=== PATIENT | male | born 1990 | race African-American/Black ===

== ENCOUNTER 2020-06-05 12:00 | Emergency (ER) | payer OTHER ==
[2020-06-05 12:18] VITALS: BP 113/66; PULSE 80; RESP 18; TEMP 97.8
[2020-06-05] MEDS ORDERED: ACET/COD 300 MG/30 MG STARTER PACK 6 TAB BTL PO STA (12:44)
--- NOTE | 2020-06-05 12:44 | ED ---
ENT HPI - General Chief complaint: Dental/Oral Stated complaint: dental infection Time Seen by Provider: 06/05/20 12:34 Source: patient, RN notes reviewed Mode of arrival: ambulatory Limitations: no limitations - History of Present Illness Initial comments: 29-year-old male presents emergency Department chief complaint abdominal pain. Patient's had on-and-off issues with this over the last year. Patient states she's on able to get removed as he does not have insurance. Patient had increased pain last few days. Denies patient having a fever states he's had chills at nighttime. No difficult to swallow no difficulty breathing. - Related Data Previous Rx's Medication Instructions Recorded Clindamycin HCl 300 mg PO Q6HR #40 cap 06/05/20 Ibuprofen [Motrin] 600 mg PO Q8HR PRN #20 tab 06/05/20 Allergies Allergy/AdvReac Type Severity Reaction Status Date / Time No Known Allergies Allergy Verified 06/05/20 12:18 Review of Systems ROS Statement: Those systems with pertinent positive or pertinent negative responses have been documented in the HPI. ROS Other: All systems not noted in ROS Statement are negative. Past Medical History Past Medical History: No Reported History History of Any Multi-Drug Resistant Organisms: None Reported Past Surgical History: No Surgical Hx Reported Past Psychological History: No Psychological Hx Reported Smoking Status: Current every day smoker Past Alcohol Use History: None Reported Past Drug Use History: None Reported General Exam Limitations: no limitations General appearance: alert, in no apparent distress Head exam: Present: atraumatic, normocephalic, normal inspection Eye exam: Present: normal appearance, PERRL, EOMI. Absent: scleral icterus, conjunctival injection, periorbital swelling ENT exam: Present: mucous membranes moist, TM's normal bilaterally, normal external ear exam. Absent: normal exam, normal oropharynx (Right upper dental fracture No drainable abscess, mild erythema) Neck exam: Present: normal inspection. Absent: tenderness, meningismus, lymphadenopathy Respiratory exam: Present: normal lung sounds bilaterally. Absent: respiratory distress, wheezes, rales, rhonchi, stridor Cardiovascular Exam: Present: regular rate, normal rhythm, normal heart sounds. Absent: systolic murmur, diastolic murmur, rubs, gallop, clicks Course Vital Signs 06/05/20 12:14 Temperature 97.8 F Pulse Rate 80 Respiratory 18 Rate Blood Pressure 113/66 O2 Sat by Pulse 100 Oximetry Medical Decision Making - Medical Decision Making Patient was started on antibiotics, patient was given a starter pack of pain medication. Patient will follow-up with dental clinic and return for any worsening change in symptoms. Disposition Clinical Impression: Fracture of tooth, Toothache Disposition: HOME SELF-CARE Condition: Stable Instructions (If sedation given, give patient instructions): Toothache (ED) Additional Instructions: Please follow up with the [facility]. [facility] [place] [address]. Phone number for new patients or [phone] for existing patients. Please return to the Emergency Department if symptoms worsen or any other concerns. Prescriptions: Clindamycin HCl 300 mg PO Q6HR #40 cap Ibuprofen [Motrin] 600 mg PO Q8HR PRN #20 tab PRN Reason: Pain Is patient prescribed a controlled substance at d/c from ED?: No Referrals: None,Stated [Primary Care Provider] - 1-2 days Time of Disposition: 12:44
== END 2020-06-05 12:57 | disposition home or self-care (01) ==
LOC: EC 12:00
DX: S02.5XXA Fracture of tooth (traumatic), initial encounter for closed fracture (principal); F17.200 Nicotine dependence, unspecified, uncomplicated; X58.XXXA Exposure to other specified factors, initial encounter
CPT/HCPCS: 99283

== ENCOUNTER 2021-01-01 14:08 | Emergency (ER) | payer BC, OTHER ==
[2021-01-01] MEDS ORDERED: ACET/COD 300 MG/30 MG STARTER PACK 6 TAB BTL PO STA (14:52)
--- NOTE | 2021-01-01 14:56 | ED ---
ENT HPI - General Chief complaint: Dental/Oral Stated complaint: Dental Pain Time Seen by Provider: 01/01/21 14:24 Source: patient Mode of arrival: ambulatory Limitations: no limitations - History of Present Illness Initial comments: 31-year-old female presents emergency Department with chief complaint of dental pain. Patient reports she has not seen a dentist in quite some time. States most of the pain is located in his bottom left side. Patient reports pain with mastication over the last 2 days. Denies any erythematous changes fevers chills or any facial swelling. Pain is alleviated at rest. Patient is sharp 02/06. - Related Data Previous Rx's Medication Instructions Recorded Clindamycin HCl 300 mg PO Q6HR #40 cap 06/05/20 Ibuprofen [Motrin] 600 mg PO Q8HR PRN #20 tab 06/05/20 Amoxicillin/Potassium Clav 1 tab PO Q12HR #20 tab 01/01/21 [Augmentin 875-125 Tablet] Allergies Allergy/AdvReac Type Severity Reaction Status Date / Time No Known Allergies Allergy Verified 01/01/21 14:21 Review of Systems ROS Statement: Those systems with pertinent positive or pertinent negative responses have been documented in the HPI. ROS Other: All systems not noted in ROS Statement are negative. Past Medical History Past Medical History: No Reported History History of Any Multi-Drug Resistant Organisms: None Reported Past Surgical History: No Surgical Hx Reported Past Psychological History: No Psychological Hx Reported Smoking Status: Vaper Past Alcohol Use History: None Reported Past Drug Use History: Marijuana General Exam Limitations: no limitations General appearance: alert, in no apparent distress Head exam: Present: atraumatic, normocephalic, normal inspection Eye exam: Present: normal appearance, PERRL, EOMI Pupils: Present: normal accommodation ENT exam: Present: normal exam, mucous membranes moist, TM's normal bilaterally, normal external ear exam. Absent: normal oropharynx (Poor dentition. No signs of periapical abscess. Mild gingival irritation. Tenderness at tooth #21.) Neck exam: Present: normal inspection, full ROM. Absent: tenderness, lymphadenopathy Respiratory exam: Present: normal lung sounds bilaterally. Absent: respiratory distress Cardiovascular Exam: Present: regular rate, normal rhythm, normal heart sounds. Absent: systolic murmur Extremities exam: Present: normal inspection, full ROM. Absent: tenderness Back exam: Present: normal inspection, full ROM. Absent: tenderness Neurological exam: Present: alert, oriented X3 Psychiatric exam: Present: normal affect, normal mood Skin exam: Present: warm, dry, intact, normal color Course Vital Signs 01/01/21 14:19 Temperature 98.1 F Pulse Rate 96 Respiratory 20 Rate Blood Pressure 98/65 O2 Sat by Pulse 98 Oximetry Medical Decision Making - Medical Decision Making 30-year-old male presents to emergency department with chief complaint of dental pain. Physical examination, no periorbital abscess or facial swelling. Patient will be given Tylenol 3 starter pack. Also given information regarding local [facility]. He will also be discharged with Augmentin. Case discussed with physician Disposition Clinical Impression: Toothache Disposition: HOME SELF-CARE Condition: Stable Instructions (If sedation given, give patient instructions): Toothache (ED) Additional Instructions: Please return to the Emergency Department if symptoms worsen or any other concerns. Prescriptions: Amoxicillin/Potassium Clav [Augmentin 875-125 Tablet] 1 tab PO Q12HR #20 tab Is patient prescribed a controlled substance at d/c from ED?: No Referrals: Natali Munoz MD [Primary Care Provider] - 1-2 days Time of Disposition: 14:56
[2021-01-01 15:07] VITALS: BP 100/66; PULSE 92; RESP 18; TEMP 98
== END 2021-01-01 15:06 | disposition home or self-care (01) ==
LOC: EC 14:08
DX: K08.89 Other specified disorders of teeth and supporting structures (principal); F12.90 Cannabis use, unspecified, uncomplicated; Z79.1 Long term (current) use of non-steroidal anti-inflammatories (NSAID)
CPT/HCPCS: 99282

== ENCOUNTER 2021-02-27 13:41 | Emergency (ER) | payer OTHER ==
[2021-02-27 13:46] VITALS: BP 120/75; RESP 18
[2021-02-27] MEDS ORDERED: KETOROLAC 15 MG/ML 1 ML VIAL IVP STA (13:59)
[2021-02-27] MEDS ORDERED: SODIUM CHLORIDE 0.9% 1,000 ML IV STA (13:59)
--- NOTE | 2021-02-27 14:58 | XR ---
EXAMINATION TYPE: XR thoracic spine 2V DATE OF EXAM: 02/27/2021 COMPARISON: None HISTORY: Right middle back pain TECHNIQUE: 3 view thoracic spine FINDINGS: Vertebral body heights are preserved. Disc heights are preserved. A mild scoliosis with indra e bending towards the left is evident. This could be related to patient positioning or muscle spasm. There are 12 thoracic type vertebral bodies. Pedicles are intact. IMPRESSION: 1. Mild scoliosis and side bending towards the left which can be related to patient positioning or m uscle spasm. 2. No acute osseous abnormality.
--- NOTE | 2021-02-27 15:22 | ED ---
Back Pain HPI - General Chief Complaint: Back Pain/Injury Stated Complaint: Back Injury Time Seen by Provider: 02/27/21 13:50 Source: patient, RN notes reviewed Limitations: no limitations - History of Present Illness Initial Comments: Patient is a 30-year-old male that presents to the emergency department complaining of right middle back pain. He notes he was at work when a small piece of wood pushing a lot of follow-up to remove and hit him in the back. He notes that his back is very tight and tender at this time. He notes he is having difficulty walking on the street. He wanted to come emergency room to get evaluated for any possible issues. He was otherwise a well-appearing 30-year-old male in no apparent distress. He denied any chest pain short of breath headache nausea vomiting diarrhea constipation fever fatigue chills. - Related Data Previous Rx's Medication Instructions Recorded Clindamycin HCl 300 mg PO Q6HR #40 cap 06/05/20 Ibuprofen [Motrin] 600 mg PO Q8HR PRN #20 tab 06/05/20 Amoxicillin/Potassium Clav 1 tab PO Q12HR #20 tab 01/01/21 [Augmentin 875-125 Tablet] Allergies Allergy/AdvReac Type Severity Reaction Status Date / Time No Known Allergies Allergy Verified 02/27/21 13:45 Review of Systems ROS Statement: Those systems with pertinent positive or pertinent negative responses have been documented in the HPI. ROS Other: All systems not noted in ROS Statement are negative. Past Medical History Past Medical History: No Reported History History of Any Multi-Drug Resistant Organisms: None Reported Past Surgical History: No Surgical Hx Reported Past Psychological History: No Psychological Hx Reported Smoking Status: Vaper Past Alcohol Use History: None Reported Past Drug Use History: Marijuana General Exam Limitations: no limitations General appearance: alert, in no apparent distress Head exam: Present: atraumatic, normocephalic, normal inspection Eye exam: Present: normal appearance, PERRL, EOMI. Absent: scleral icterus, conjunctival injection, periorbital swelling Neck exam: Present: normal inspection Respiratory exam: Present: normal lung sounds bilaterally. Absent: respiratory distress, wheezes, rales, rhonchi, stridor Cardiovascular Exam: Present: regular rate, normal rhythm, normal heart sounds. Absent: systolic murmur, diastolic murmur, rubs, gallop, clicks Extremities exam: Present: normal inspection, full ROM, normal capillary refill. Absent: tenderness, pedal edema, joint swelling, calf tenderness Back exam: Present: normal inspection, tenderness (Right middle back, lateral to the spine.) Neurological exam: Present: alert, oriented X3 Psychiatric exam: Present: normal affect, normal mood Skin exam: Present: warm, dry, intact, normal color. Absent: rash Course Vital Signs 02/27/21 13:42 Temperature 98.8 F Pulse Rate 96 Respiratory 18 Rate Blood Pressure 120/75 O2 Sat by Pulse 99 Oximetry Medical Decision Making - Medical Decision Making 30-year-old male complaining of right upper back pain after getting hit by a piece of motion is on at work yesterday. X-ray of the thoracic spine, 1 L normal saline, 15 mg of Toradol ordered. X-ray imaging negative for any acute fractures dislocations. Case discussed with Dr. Patiño, patient can discharge home with follow-up primary care. - Radiology Data Radiology results: report reviewed, image reviewed X-ray thoracic spine: Mild scoliosis and side bending towards the left which may be related to patient physician or muscle spasm. No acute osseous abdomen about it. Disposition Clinical Impression: Thoracic back pain, Back contusion Disposition: HOME SELF-CARE Condition: Stable Instructions (If sedation given, give patient instructions): Acute Low Back Pain (ED) Additional Instructions: Please return to the Emergency Department if symptoms worsen or any other concerns. Follow-up with primary care in 1-2 days. Take Tylenol and Motrin as needed for pain. Is patient prescribed a controlled substance at d/c from ED?: No Referrals: Natali Munoz MD [Primary Care Provider] - 1-2 days Time of Disposition: 15:21
[2021-02-27 15:43] VITALS: PULSE 88; TEMP 97.7
== END 2021-02-27 15:42 | disposition home or self-care (01) ==
LOC: EC 13:41
DX: S20.229A Contusion of unspecified back wall of thorax, initial encounter (principal); F17.290 Nicotine dependence, other tobacco product, uncomplicated; F12.90 Cannabis use, unspecified, uncomplicated; W20.8XXA Other cause of strike by thrown, projected or falling object, initial encounter
CPT/HCPCS: 99283; 96374; 96361; 72070; J1885

== ENCOUNTER 2021-06-06 17:46 | Emergency (ER) | payer OTHER ==
[2021-06-06 18:24] VITALS: BP 92/69; PULSE 101; RESP 20; TEMP 99
--- NOTE | 2021-06-06 20:20 | ED ---
Psych HPI - General Chief Complaint: Psychiatric Symptoms Stated Complaint: Mental Health Time Seen by Provider: 06/06/21 18:27 Source: patient Mode of arrival: ambulatory - History of Present Illness Initial Comments: 30-year-old male presents emergency department requesting mental health evaluation. He reports a history of anxiety and depression and feels as if he is having a mental breakdown. States that he has been closed off since Friday. Has not left his house and refuses to interact with anybody. Reports that his anxiety feels like it's out of control. He has a long-standing history however denies that he has ever had to take medications because of it. He used to see a therapist. Has never been hospitalized. He denies any suicidal or homicidal ideations. Did admit to drinking a shot of alcohol before coming into the emergency department. Denies any drug abuse. No other alleviating, precipitating or modifying factors - Related Data Previous Rx's Medication Instructions Recorded Mirtazapine [Remeron] 15 mg PO HS #14 tab 06/06/21 Allergies Allergy/AdvReac Type Severity Reaction Status Date / Time No Known Allergies Allergy Verified 06/06/21 21:00 Review of Systems ROS Statement: Those systems with pertinent positive or pertinent negative responses have been documented in the HPI. ROS Other: All systems not noted in ROS Statement are negative. Past Medical History Past Medical History: No Reported History History of Any Multi-Drug Resistant Organisms: None Reported Past Surgical History: No Surgical Hx Reported Past Psychological History: Anxiety Smoking Status: Current every day smoker, Vaper Past Alcohol Use History: None Reported Past Drug Use History: Marijuana General Exam Limitations: no limitations Course Vital Signs 06/06/21 18:21 Temperature 99.0 F Pulse Rate 101 H Respiratory 20 Rate Blood Pressure 92/69 O2 Sat by Pulse 100 Oximetry Medical Decision Making - Medical Decision Making Arrival patient's placed into room 8. A thorough history and physical exam is performed. Patient's blood alcohol content is low at this time. He is ready for EPS evaluation. They're currently evaluating the patient and we will appreciate their recommendations Patient not suicidal or homicidal. Patient does fill out safety plan. Requesting something for sleep. Prescription called into the pharmacy. Patient will be discharged home and instructed to return for any new or worsening symptoms Disposition Clinical Impression: Acute anxiety, Insomnia Disposition: HOME SELF-CARE Condition: Stable Instructions (If sedation given, give patient instructions): Anxiety (ED) Additional Instructions: Please follow-up with the numbers you were provided. Take the medication as directed for sleep. Return to the emergency department for any new or worsening symptoms Prescriptions: Mirtazapine [Remeron] 15 mg PO HS #14 tab Is patient prescribed a controlled substance at d/c from ED?: No Referrals: Natali Munoz MD [Primary Care Provider] - 1-2 days Time of Disposition: 20:46
== END 2021-06-06 21:00 | disposition home or self-care (01) ==
LOC: EC 17:46
DX: F41.9 Anxiety disorder, unspecified (principal); G47.00 Insomnia, unspecified; F17.200 Nicotine dependence, unspecified, uncomplicated; F12.90 Cannabis use, unspecified, uncomplicated
CPT/HCPCS: 82075; 99283